=== PATIENT | female | born 1975 | race Caucasian/White ===

== ENCOUNTER 2018-04-16 19:05 | Emergency (ER) | payer BC ==
[2018-04-16] MEDS ORDERED: Midazolam* 1 MG/ML 5 ML VIAL (5 MG) SLOW PUSH ONE (19:53)
[2018-04-16] MEDS ORDERED: fentaNYL* 50 MCG/ML 2 ML VIAL (100 MCG VIAL) IV SLOW PU ONE ×2 (19:54→22:18)
[2018-04-16] MEDS ORDERED: NS 0.9% 1000 ML* 1,000 ML IV ONE (19:54)
--- NOTE | 2018-04-16 19:54 | ED ---
Upper Extremity Pain - HPI Summary HPI Summary: This patient is a 43 year old F presenting to ED with a chief complaint of L shoulder dislocation since 1845 today after slipping and falling on it. The patient rates the pain 10/10 in severity. Symptoms aggravated by movement. Symptoms alleviated by nothing. Patient has her shoulder in a splint. - History of Current Complaint Chief Complaint: EDShoulderClavicleInj Stated Complaint: LT SHOULDER INJURY Time Seen by Provider: 04/16/18 19:46 Hx Obtained From: Patient Mechanism Of Injury: Blunt Trauma - slipped and fell on her L shoulder Onset/Duration: Still Present Timing: Constant Severity Initially: Severe - 10/10 Severity Currently: Severe - 10/10 Pain Location: Shoulder - left Aggravating Factor(s): Movement Alleviating Factor(s): Nothing - Allergies/Home Medications Allergies/Adverse Reactions: Allergies Allergy/AdvReac Type Severity Reaction Status Date / Time erythromycin base Allergy Rash Verified 04/16/18 19:46 naproxen Allergy Nausea And Verified 04/16/18 19:46 Vomiting NSAIDS (Non-Steroidal Allergy Nausea And Verified 04/16/18 19:46 Anti-Inflamma Vomiting Penicillins Allergy Rash Verified 04/16/18 19:46 Sulfa (Sulfonamide Allergy Rash Verified 04/16/18 19:46 Antibiotics) PMH/Surg Hx/FS Hx/Imm Hx GI History: Reports: Other GI Disorders - ectopic Musculoskeletal History: Reports: Other Musculoskeletal History - shoulder dislocation Infectious Disease History: No Infectious Disease History: Denies: Traveled Outside the [place] in Last 30 Days - Family History Family History: arthritis, cancer, heart attack - Social History Alcohol Use: Rare Substance Use Type: Reports: None Smoking Status (MU): Former Smoker Review of Systems Negative: Fever Positive: Other - L shoulder dislocation after slipping and falling on it All Other Systems Reviewed And Are Negative: Yes Physical Exam - Summary Physical Exam Summary: VITAL SIGNS: Reviewed. GENERAL: Patient is a well-developed and nourished FEMALE who is lying comfortable in the stretcher. Patient is not in any acute respiratory distress. HEAD AND FACE: No signs of trauma. No ecchymosis, hematomas or skull depressions. No sinus tenderness. EYES: PERRLA, EOMI x 2, No injected conjunctiva, no nystagmus. EARS: Hearing grossly intact. Ear canals and tympanic membranes are within normal limits. MOUTH: Oropharynx within normal limits. NECK: Supple, trachea is midline, no adenopathy, no JVD, no carotid bruit, no c- spine tenderness, neck with full ROM. CHEST: Symmetric, no tenderness at palpation LUNGS: Clear to auscultation bilaterally. No wheezing or crackles. CVS: Regular rate and rhythm, S1 and S2 present, no murmurs or gallops appreciated. ABDOMEN: Soft, non-tender. No signs of distention. No rebound no guarding, and no masses palpated. Bowel sounds are normal. EXTREMITIES: No edema, no cyanosis or clubbing. Deformity over the L shoulder. Decreased ROM due to the pain. NEURO: Alert and oriented x 3. No acute neurological deficits. Speech is normal and follows commands. SKIN: Dry and warm Neurovascular exam is intact. Triage Information Reviewed: Yes Vital Signs On Initial Exam: Initial Vitals Temp Pulse Resp BP Pulse Ox 98.6 F 108 18 163/83 99 04/16/18 19:18 04/16/18 19:18 04/16/18 19:18 04/16/18 19:18 04/16/18 19:18 Vital Signs Reviewed: Yes Procedures - Joint Reduction Left Joint Reduction Site: shoulder (L) Conscious Sedation: Yes Reduction Attempts: 2 - administered propofol for second attempt, used traction , counter-traction method for reduction Post Joint Reduction Film: joint reduced Diagnostics - Vital Signs Vital Signs Temp Pulse Resp BP Pulse Ox 04/16/18 19:18 98.6 F 108 18 163/83 99 - Laboratory Lab Statement: Any lab studies that have been ordered have been reviewed, and results considered in the medical decision making process. - Radiology L shoulder XR Radiology Interpretation Completed By: ED Physician Summary of Radiographic Findings: Ulterior dislocation of the L shoulder. Pending radiologist official report. post-reduction L shoulder XR Radiology Interpretation Completed By: ED Physician Summary of Radiographic Findings: Post-reduction L shoulder XR reveals the L shoulder shows good alignment and no fracture. Pending radiologist official report. Re-Evaluation - Re-Evaluation First Eval Re-Evaluation Time: 21:17 Comment: Discussed post-reduction XR results and plan for discharge. Patient understands and agrees. Course/Dx - Course Assessment/Plan: This patient is a 43 year old F presenting to ED with a chief complaint of L shoulder dislocation since 1845 today after slipping and falling on it. L shoulder XR reveals ulterior dislocation of the L shoulder. Consent for moderate sedation was taken from the patient. Joint reduction began at 2012. The patient was given fentanyl and versed x2 and the patient was still not relaxed enough. We were not able to reduce the L shoulder. Dr. Johnson ( anesthesiologist) was called to give the patient Propofol. 2nd attempt at joint reduction was done at 2056 using the traction, counter-traction method. Post- reduction L shoulder XR reveals the L shoulder shows good alignment and no fracture. Patient will be discharge with instructions to wear a sling when awake and to follow up with Dr. Guo. Patient understands and agrees. - Diagnoses Provider Diagnoses: Dislocation of left shoulder joint - Physician Notifications Discussed Care of Patient With: Ken Johnson Time Discussed With Above Provider: 20:31 Instructed by Provider To: Other - Discussed giving propofol to the patient since she isn't relaxed enough to do the shoulder reduction. Discharge - Sign-Out/Discharge Documenting (check all that apply): Patient Departure - discharge - Discharge Plan Condition: Stable Disposition: HOME Patient Education Materials: Moderate Sedation (ED), Shoulder Dislocation (ED) Referrals: Pat Guo MD [Medical Doctor] - (Please follow up in 2-3 days.) Additional Instructions: RETURN TO THE EMERGENCY DEPARTMENT FOR CHANGING OR WORSENING SYMPTOMS. FOLLOW UP WITH PCP IN 1-2 DAYS. Please follow up with Dr. Guo in 2-3 days. Wear a sling when you are wide awake. - Attestation Statements Document Initiated by Scribe: Yes Documenting Scribe: Reginaldo Lawson Provider For Whom Rosaibe is Documenting (Include Credential): Augustus Marques MD Scribe Attestation: Reginaldo Garces, scribed for Augustus Marques MD on 04/16/18 at 2114. Status of Scribe Document: Ready Procedure Note: Sedation - Sedation/Analgesia Procedure: L shoulder reduction Informed Consent Obtained: Yes Plan for Sedation: Moderate Sedation
[2018-04-16] MEDS ORDERED: Naloxone* 0.4 MG/ML 10 ML VIAL ONE (20:05)
[2018-04-16] MEDS ORDERED: Flumazenil* 0.1 MG/ML 5 ML MDV ONE (20:06)
[2018-04-16] MEDS ORDERED: fentaNYL* 50 MCG/ML 2 ML VIAL (100 MCG VIAL) ONE ×2 (20:17→20:41)
[2018-04-16] MEDS ORDERED: Midazolam* 1 MG/ML 5 ML VIAL (5 MG) ONE ×2 (20:17→20:42)
[2018-04-16] MEDS ORDERED: Midazolam* 1 MG/ML 5 ML VIAL (5 MG) IV ONE (20:20)
[2018-04-16] MEDS ORDERED: Lidocaine 2% PF * 5 ML VIAL ONE (20:41)
[2018-04-16] MEDS ORDERED: Propofol* 10 MG/ML 20 ML BTL ONE (20:41)
[2018-04-16 22:52] VITALS: BP 142/83
--- NOTE | 2018-04-17 16:36 | PN ---
Progress Note - Progress Note Date of Service: 04/16/18 Note: Pt. seen in ED last evening for shoulder dislocation and reduction. Final xray read today is showing a probable hill sachs impaction fx. I called and spoke with pt. today at 1642 and informed her of impaction fx. Pt. states she is to f.u with her orthopedic dr, Dr. Pizarro, this week. No change in treatment plan needed at this time. To continue sling.
== END 2018-04-16 22:50 | disposition home or self-care (01) ==
LOC: ED 19:05
DX: S43.005A Unspecified dislocation of left shoulder joint, initial encounter (principal); W01.0XXA Fall on same level from slipping, tripping and stumbling without subsequent striking against object, initial encounter; Y92.9 Unspecified place or not applicable; Z88.2 Allergy status to sulfonamides; Z88.0 Allergy status to penicillin; Z87.891 Personal history of nicotine dependence
CPT/HCPCS: 23650; 96361; 96374; 99285; J2250; J2310; J2704; J3010